=== PATIENT | female | born 1975 | race Caucasian/White ===

== ENCOUNTER 2016-12-26 10:25 | Observation (INO) | payer SELFPAY ==
[~2016-12-26 10:25] MED LIST: ANACIN TABLET1 TAB PO; BENADRYL25 M3 PO; CLARITIN10 M6 PO; FLONASE ALLERG9.9 ML; IMITREX50 M2 PO; IMITREX50 MG PO; NO MEDS; PAMPRIN MAX PA1 EACH PO; PEPCID40 M1 PO; PREDNISONE20 M1 PO; TRAZODONE HCL100 M1 PO; TRILEPTAL150 M2 PO; TRILEPTAL300 M2 PO; TYLENOL COLD M1 EACH PO; UNISOM SLEEP AI25 M1 PO; UNISOM SLEEP AI25 MG PO
[2016-12-26 11:18] LABS: BASO % 0.4 % (0-2); EOS % 4.1 % (0-7); EOSINOPHIL ABSOLUTE COUNT 0.2 tho/cmm (0.0-0.7); HGB-HEMOGLOBIN 8.3 gm/dl (12.0-15.5); IMMATURE GRANULOCYTES ABSOLUTE 0.01 tho/cmm (0-0.03); IMMATURE GRANULOCYTES PERCENT 0.2 % (0-0.3); LYMPH % 28.7 % (20-45); LYMPH ABSOLUTE COUNT 1.5 tho/cmm (0.8-4.5); MCH (MEAN CORPUSCULAR HGB) 21.6 pg (28.0-32.0); MCHC MEAN CORPUSCULAR HGB CONC 29.6 % (32.0-36.0); MCV (MEAN CELL VOLUME) 72.9 fl (82.0-96.0); MEAN PLATELET VOLUME 8.8 cmc (9.4-12.4); MONO % 7.9 % (0-12); MONOCYTE ABSOLUTE COUNT 0.4 tho/cmm (0.0-1.2); NEUTROPHIL ABSOLUTE COUNT 3.1 tho/cmm (1.6-8.0); NEUTROPHIL-AUTOMATED 3.1 tho/cmm (1.6-8.0); NEUTROPHILS % 58.7 % (40-80); PLATELET COUNT 293 tho/cmm (150-450); RED BLOOD COUNT 3.84 mil/cmm (4.00-5.20); RED CELL DISTRIBUTION WIDTH 16.5 % (12.4-16.4); WHITE BLOOD COUNT 5.3 tho/cmm (4.0-10.0)
[2016-12-26 11:30] LABS: ANION GAP 11 mmol/L (0-20); BLOOD UREA NITROGEN 12 mg/dl (6-24); CARBON DIOXIDE-VENOUS 24 mmol/L (22-32); CHLORIDE 111 mmol/l (96-110); CREATININE 0.54 mg/dl (0.50-1.10); GLUCOSE 86 mg/dL (70-110); POTASSIUM 4.2 mmol/L (3.7-5.1); SODIUM 142 mmol/L (135-145); eGFR VALUE FOR BLACK >90 mL/Min
[2016-12-26] MEDS ORDERED: VENTOLIN HFA18 G2 INH (12:20)
[2016-12-26] MEDS ORDERED: TYLENOL325 M2 PO (16:17)
[2016-12-26] MEDS ORDERED: ORTHO TRI-CYCL1 EACH PO (17:00)
[2016-12-26 22:09] LABS: HCT-HEMATOCRIT 26.1 % (34.0-49.0); HGB-HEMOGLOBIN 7.6 gm/dl (12.0-15.5); MCV (MEAN CELL VOLUME) 73.1 fl (82.0-96.0); RED CELL DISTRIBUTION WIDTH 16.5 % (12.4-16.4)
[2016-12-27 06:35] LABS: HCT-HEMATOCRIT 26.4 % (34.0-49.0); HGB-HEMOGLOBIN 7.7 gm/dl (12.0-15.5); MCV (MEAN CELL VOLUME) 73.1 fl (82.0-96.0); RED CELL DISTRIBUTION WIDTH 16.5 % (12.4-16.4)
[2016-12-27] MEDS ORDERED: SPRINTEC 28 DA1 EACH PO (11:49)
[2016-12-27] MEDS ORDERED: IRON325 M3 PO (11:50)
[2016-12-27] MEDS ORDERED: TYLENOL EXTRA500 M1 PO (12:07)
== END 2016-12-27 13:55 ==
LOC: EDMED 10:25 → EMR2 14:28 → OBGE 15:57
PROVIDERS: Physician Assistant; ADMIT Obstetrics & Gynecology
DX: N93.9 Abnormal uterine and vaginal bleeding, unspecified (principal); G40.909 Epilepsy, unspecified, not intractable, without status epilepticus; F43.10 Post-traumatic stress disorder, unspecified; E28.2 Polycystic ovarian syndrome; F17.200 Nicotine dependence, unspecified, uncomplicated; D64.9 Anemia, unspecified; Z79.899 Other long term (current) drug therapy; Z88.1 Allergy status to other antibiotic agents; Z88.8 Allergy status to other drugs, medicaments and biological substances; Z91.018 Allergy to other foods; Z91.040 Latex allergy status; Z98.890 Other specified postprocedural states
CPT/HCPCS: G0009; G0378; J2270; J2405; J7030